=== PATIENT | female | born 1995 | race Two or more races ===

== ENCOUNTER 2017-05-27 18:29 | Emergency (ER) | payer MEDICAID, OTHER ==
[~2017-05-27] VITALS: Ht 160 cm; Wt 56.7 kg
[2017-05-27] MEDS ORDERED: SODIUM CHLORIDE 0.9% 1,000 ML IV ONE ×2 (18:41→21:00)
[2017-05-27 19:09] LABS: Basophils # (auto) 0 uL; Basophils % (auto) 0.3 % (0.0-2.0); CONDITION Y; Eosinophils # (auto) 0 uL; Hematocrit 41.3 % (36.0-46.0); Lymphocytes # (auto) 1.4 uL; Lymphocytes % (auto) 13.1 % (10.0-50.0); Mean Corpuscular Hgb Conc. 33.9 g/dL (32.0-36.0); Mean Corpuscular Volume 82.7 fL (80.0-100.0); Mean Platelet Volume 7.2 fL (7.4-10.4); Monocytes # (auto) 0.7 uL; Monocytes % (auto) 6.2 % (0.0-12.0); Neutrophils # (auto) 8.7 uL; Neutrophils % (auto) 80.4 % (37.0-80.0); Platelet Count (auto) 427 10^3/uL (140-450); Red Cell Distribution Width 14.9 % (11.6-16.0); White Blood Cell 10.9 10^3/uL (4.4-10.8)
[2017-05-27 19:22] LABS: INR 1.04 (0.9-1.15); Prothrombin Time 11.3 sec (9.37-12.3)
[2017-05-27 19:34] LABS: Albumin 4.8 g/dL (3.4-5.0); BUN/Creatinine Ratio 7.7; Calcium 9.3 mg/dL (8.5-10.1); Potassium 3.4 mmol/L (3.5-5.1)
[2017-05-27 19:38] LABS: Bilirubin, Total 0.5 mg/dL (0.2-1.0)
[2017-05-27 19:43] LABS: B-Type Natriuretic Peptide 54.05 pg/mL (0-100)
[2017-05-27 20:17] LABS: Urine Bilirubin Negative (Negative); Urine Color Yellow (Yellow); Urine Glucose Normal (Normal); Urine Granular Cast FEW /lpf (0); Urine Hyaline Cast FEW /lpf (0 - 2); Urine Mucus FEW (None Seen); Urine Nitrite Negative (Negative); Urine RBC 2 /hpf (0 - 4); Urine Squamous Epithelial Cell FEW /hpf (<5); Urine Urobilinogen Normal (Negative); Urine pH 8.5 (5.0-8.0)
[2017-05-27 20:19] LABS: Urine Blood 2+ /uL (Negative); Urine Ketone 1+ (Negative)
[2017-05-27 20:42] VITALS: BP 136/70
[2017-05-27] MEDS ORDERED: LORazepam 2MG/ML-1ML VIAL IV ONE (21:15)
== END 2017-05-27 23:27 | disposition home or self-care (01) ==
LOC: ER 18:32
DX: F15.10 Other stimulant abuse, uncomplicated (principal); R11.2 Nausea with vomiting, unspecified
CPT/HCPCS: 36415; 71010; 80053; 80307; 81001; 81025; 83880; 84484; 85025; 85610; 85730; 93005; 94761; 96361; 96374; 99285; J2060

== ENCOUNTER 2020-03-14 09:02 | Day surgery (SDC) | payer BC, MEDICAID ==
[~2020-03-14] VITALS: Ht 160 cm; Wt 59.0 kg
[2020-03-14] MEDS ORDERED: SODIUM CHLORIDE 0.9% 500 ML IVB ONE (09:23)
[2020-03-14] MEDS ORDERED: SODIUM CHLORIDE 0.9% 1,000 ML IV ONE (09:23)
[2020-03-14] MEDS ORDERED: PROMETHAZINE HCL 25 MG/ML 1ML IV PRN (09:30)
[2020-03-14] MEDS ORDERED: HYDROmorphone HCL 2 MG/ML VL IV ONE (09:30)
[2020-03-14 10:13] LABS: Basophils # (auto) 0.1 10 ^3/uL (0-0.2); Basophils % (auto) 0.6 % (0.0-2.0); Eosinophils # (auto) 0 10 ^3/uL (0-0.8); Hematocrit 34.2 % (36.0-46.0); Hemoglobin 11.2 g/dL (12.2-16.2); Lymphocytes # (auto) 0.6 10 ^3/uL (0.4-5.4); Lymphocytes % (auto) 3.8 % (10.0-50.0); Mean Corpuscular Hemoglobin 28.1 pg (28.0-32.0); Mean Corpuscular Hgb Conc. 32.9 g/dL (32.0-36.0); Mean Corpuscular Volume 85.4 fL (80.0-100.0); Monocytes # (auto) 0.6 10 ^3/uL (0-1.3); Monocytes % (auto) 3.9 % (0.0-12.0); Neutrophils # (auto) 14.7 10 ^3/uL (1.6-8.6); Neutrophils % (auto) 91.7 % (37.0-80.0); Nucleated Red Blood Cells % 0.1 %; Platelet Count (auto) 273 10^3/uL (140-450); Red Cell Distribution Width 15.1 % (11.8-14.3)
[2020-03-14 10:18] LABS: Partial Thromboplastin Time 25.1 sec (23.64-32.05)
[2020-03-14 10:24] LABS: Albumin 4.1 g/dL (3.4-5.0); Calcium 8.3 mg/dL (8.5-10.1); Potassium 3.4 mmol/L (3.5-5.1)
[2020-03-14 10:27] LABS: BUN/Creatinine Ratio 12.7; Bilirubin, Total 0.3 mg/dL (0.2-1.0); Total Protein 7.9 g/dL (6.4-8.2)
[2020-03-14 11:53] LABS: Urine Bacteria NONE SEEN /hpf (None Seen); Urine Blood 3+ /uL (Negative); Urine Mucus FEW (None Seen); Urine Specific Gravity 1.016 (1.001-1.035); Urine WBC 203 /hpf (0 - 5); Urine WBC Clumps PRESENT /hpf (None Seen)
[2020-03-14 12:10] LABS: Alcohol, Urine < 3.0 mg/dL (0-5); Amphetamine Screen, Urine NEGATIVE (NEGATIVE); Barbiturate Scree,Urine NEGATIVE (NEGATIVE); Benzodiazephine Screen, Urine NEGATIVE (NEGATIVE); Cannabinoid Screen, Urine POSITIVE (NEGATIVE); Cocaine Screen, Urine NEGATIVE (NEGATIVE); Opiate Scree,Urine NEGATIVE (NEGATIVE); Phencyclidine Screen, Urine NEGATIVE (NEGATIVE)
[2020-03-14] MEDS ORDERED: LACT. RINGERS/OXYTOCIN 20UNITS 1,000 ML IV ONE (13:00)
[2020-03-14] MEDS ORDERED: fentaNYL CITRATE 100 MCG/2 ML VL ONE (13:28)
[2020-03-14] MEDS ORDERED: MIDAZOLAM HCL 1MG/1ML-2 ML VIAL ONE (13:28)
[2020-03-14] MEDS ORDERED: ceFAZolin 1GM/50ML 50 ML IV ONE (13:42)
[2020-03-14] MEDS ORDERED: ONDANSETRON HCL 4 MG/2 ML VIAL IV PRN ×2 (13:45→14:45)
[2020-03-14] MEDS ORDERED: RHO (D) IMMUNE GLOBULIN 300 MCG INJ IM PRN (13:45)
[2020-03-14] MEDS ORDERED: ONDANSETRON HCL 4 MG/2 ML VIAL ONE (14:02)
[2020-03-14] MEDS ORDERED: METOCLOPRAMIDE HCL 5MG/ml INJ 2ml VIAL ONE (14:02)
[2020-03-14] MEDS ORDERED: DexAMETHasone SOD PHOS 10MG/1ML VIAL INJ ONE (14:02)
[2020-03-14] MEDS ORDERED: METHYLERGONOVINE MALEATE 0.2 MG/ML AMP IM ONE (14:30)
[2020-03-14] MEDS: METHYLERGONOVINE MALEATE 0.2 MG/ML AMP IM ONE ×2 (14:31→15:00)
[2020-03-14] MEDS ORDERED: HYDROmorphone HCL 2 MG/ML VL IV PRN (14:45)
[2020-03-14 15:28] VITALS: BP 119/78
== END 2020-03-14 15:45 | disposition home or self-care (01) ==
LOC: ER 09:02 → OR 1 09:03
PROVIDERS: ATTEND Obstetrics & Gynecology
DX: N93.8 Other specified abnormal uterine and vaginal bleeding (principal); O03.4 Incomplete spontaneous abortion without complication; M54.5 Low back pain; Z98.890 Other specified postprocedural states
CPT/HCPCS: 36415; 59812; 76801; 80053; 80307; 81001; 83690; 83735; 84702; 85025; 85610; 85730; 86850; 86900; 86901; 88305; J0690; J1100; J1170; J2210; J2250; J2405; J2550; J2590; J2765; J3010; J7030

== ENCOUNTER 2024-03-29 22:04 | Emergency (ER) | payer BC ==
[~2024-03-29] VITALS: Ht 160 cm; Wt 62.0 kg
[~2024-03-29 22:04] MED LIST: HYDR-4902 PO; IBUP-1454 PO
[2024-03-29 23:06] VITALS: BP 130/82; PULSE 72; RESP 18; O2SAT 99
== END 2024-03-30 01:09 | disposition home or self-care (01) ==
LOC: ER 22:04
DX: J95.830 Postprocedural hemorrhage of a respiratory system organ or structure following a respiratory system procedure (principal); Z90.89 Acquired absence of other organs; Z79.899 Other long term (current) drug therapy